=== PATIENT | male | born 1960 ===

== ENCOUNTER 2021-06-07 09:20 | Outpatient (REF) | payer OTHER, SELFPAY ==
--- NOTE | 2021-06-07 11:49 | MHC.AU.ANO ---
Adult Audiological Evaluation Date of Visit: 06/07/21 Reason for Appointment: Audiological evaluation due to concern for decreased hearing. Mr. Lynn reports difficulties hearing and understanding speech over the past couple years. He notes that he and his are often asking for repetition. He has difficulty hearing on the phone and will typically use speaker phone. History of noise exposure related to loud music. Does patient feel they have a hearing loss?: Yes If Yes, Which Ear?: Both Ears When Was Hearing Difficulty First Noticed?: Couple years ago Has hearing been tested previously?: No Hearing Handicap Inventory: HHIE SCORE: 20 Based on HHIE score, patient has: Mild to moderate perceived hearing handicap Medical History: Medical History: Vasectomy Medication List: Viagra Otoscopy: Right Ear: Canal free of cerumen. Exostosis visualized in canal Left Ear: Canal free of cerumen. Exostosis visualized in canal Tympanometry: Tympanometry performed due to: To assess integrity of the middle ear system Right Ear: Reduced Middle Ear Compliance (Type As) Left Ear: Normal Middle Ear System (Type A) Acoustic Reflexes: Screening Ipsilateral Reflex Probe Right Ear: Screening Ipsilateral Reflex Absent at 1000 Hz Probe Left Ear: Screening Ipsilateral Reflex Present at 1000 Hz Hearing Evaluation: Transducer(s) Used: Insert Earphones, Bone Conduction Method: Conventional Audiometry Stimuli Used: Pure Tones Right Ear: Description of Hearing: Normal hearing from 250-6000 Hz, steeply sloping to a moderate hearing loss at 8000 Hz. Hearing at 8000 Hz is 35 dBHL worse in the right ear than the left. Left Ear: Description of Hearing: Normal hearing from 250-3000 Hz, sloping to a mild sensorineural hearing loss at 4000 Hz, and rising to normal hearing from 1863-0621 Hz. Speech Recognition Threshold (SRT): Method Used: Monitored Live Voice Stimuli Used: Spondee Words Right Ear: 10 dBHL Left Ear: 10 dBHL Word Discrimination: Method: Recorded Lists Word Lists Used: NU-6 Right Ear: 96% at 50 dBHL Left Ear: 96% at 50 dBHL Recommendations: Audiological re-evaluation in one year. Amplification is not warranted at this time. Referral to Ear, Nose, and Throat is recommended given significant asymmetry at 8000 Hz and absent acoustic reflex screening in the right ear. Diagnosis: Primary Diagnosis: H90.3 Bilateral Sensorineural Hearing Loss Services Performed: Comprehensive Audiological Evaluation (CPT 13446) Tympanometry (CPT 25383) Signature: Provider: Mirta Lee, CCC-A
== END 2021-06-07 09:21 | disposition home or self-care (01) ==
LOC: HO.SH 09:20
PROVIDERS: Visit Provider Internal Medicine
DX: H90.3 Sensorineural hearing loss, bilateral (principal)
CPT/HCPCS: 92557; 92567